=== PATIENT | male | born 1945 | race Caucasian/White ===

== ENCOUNTER 2017-02-08 08:25 | Emergency (ER) | payer MEDICARE ==
[~2017-02-08] VITALS: Ht 167.6 cm; Wt 136.0 kg
[2017-02-08 08:42] VITALS: BP 144/105
== END 2017-02-08 09:55 | disposition left against medical advice (07) ==
LOC: ER 09:00
DX: Z53.21 Procedure and treatment not carried out due to patient leaving prior to being seen by health care provider (principal)